=== PATIENT | female | born 1995 | race Caucasian/White ===

== ENCOUNTER 2022-07-01 07:28 | Inpatient (IN) ==
[2022-07-01] MEDS ORDERED: OXYTOCIN 30 UNITS/500 ML BAG IV PRN ×2 (07:54→07:56)
[2022-07-01] MEDS ORDERED: LIDOCAINE 1% LOCAL 20 ML VIAL INFIL PRN (07:54)
[2022-07-01 08:26] LABS: Hematocrit (blood only) 33.5 % (37.0-47.0); Hemoglobin 11.6 g/dl (12.0-16.0); Mean Corpuscular Hemoglobin 31.1 pg (25.0-34.0); Mean Corpuscular Hgb Conc 34.6 g/dL (32.0-36.0); Mean Corpuscular Volume 89.8 fL (80.0-100.0); Mean Platelet Volume 9.1 fL (9.4-12.4); Platelet Count 272 K/uL (130-400); RDW Coefficient of Variation 12.7 % (11.5-14.5); RDW Standard Deviation 41.3 fL (36.4-46.3); Red Blood Count 3.73 M/uL (4.20-5.40)
--- NOTE | 2022-07-01 08:28 | Obstetrical Progress Note ---
Date of Service July 01, 2022 Assessment & Plan (1) Encounter for induction of labor: Plan - Patient admitted to labor and delivery for initiation of medical induction of labor - Patient received Salmeron bulb placement yesterday, did not dislodge - MARC pending per Dr. Diaz - Oxytocin augmentation of labor will be started per protocol - Once contractions are progressing, will consider ROM - Will anticipate epidural as contractions arise - Labs pending Admission and Anticipated Discharge Date Admission Date: July 01, 2022 Supervising Physician Co-Signing Physician Notes Resident Physician Supervision Note: I interviewed and examined the patient. Discussed with Dr. Miles and agree with findings and plan as documented in the note. Any exceptions or clarifications are listed here: 26 yo G1 at 40 6/7 wga presents for IOL. +FM and small VB w/ salmeron, denies regular ctx, LOF. PNI: None. VSS, Fetus cat 1. SVE 3-4/50/-2, post, med. EFW 7-8lbs. Will start pit, gbs neg, epidural PRN Documented By: Jaquelin Diaz MD Subjective Subjective: Tammie is a 26 year old female currently at 40 6/7 with ADRYAN 06/25/22 determined by LMP who presents to L&D for induction. Complications: None Reason for Induction/: Post-date Movement: Active Fluid Loss/ROM: None Bloody show/discharge: Small bloody discharge following Salmeron Bulb Salmeron Bulb: Did not dislodge Contractions: Irregular since Salmeron Bulb External FHT and uterine monitor: Category 1, tracing reactive, good FHT variability Last OB appointment: 06/30/22, regular care [employer] Hx: Hx of abnml PAP: Pos (abnormal pap, and positive hpv may 2021, colpo), Infection History: Hx Chlamydia: No, Hx Genital Herpes: No, Hx Gonorrhea: No, Hx Hepatitis: No, Hx HIV/AIDS: No, Hx Human Papilloma Virus (HPV): Yes (HPV + 2021), Hx Syphilis: No, Hx Tuberculosis: No, Rash or viral illness since LMP: No and Prior GBS infected child: No Labs: Blood Type: O+ Antibody Screen: Negative Hg/Hct (today): Pending WBC/Plt (today): Pending Rubella: Immune RPR: Non-reactive Gonorrhea: Negative Chlamydia: Negative HIV: Negative HbSAg: Negative GBS: Negative Cff-DNA: Low risk, male Cf-SMA: Negative ROS: - Denies fever, chills, sweats - Denies dyspnea or pleuritic pain - Denies chest pain, palpitations, or pressure - Denies breast pain - Denies dysuria - Denies headache or visual changes Physical Exam Physical Exam: General: Alert, oriented. No acute distress. Cardiac: Regular rate and rhythm, no murmurs/rubs/gallops. Respiratory: Clear to auscultation bilaterally a/p, no wheezes/rales/rhonchi. No increased work of breathing. Symmetrical chest rise. No respiratory distress. Abdomen: Gravid; reactive FHTs; Position: V by Yomi Maneuver Pelvic: MARC pending per Dr. Diaz Lower Extremities: No lower extremity edema or swelling. No deep calf pain. Fabiano's negative bilaterally. Results & Data Vital Signs (Past 12 Hours) Vital Signs Temp Pulse Resp BP 07/01/22 07:41 36.7 C 103 H 18 119/78 07/01/22 07:46 103 H 119/78 Resident Activity Tracking Resident Involvement: Resident Care Provided Care Provided: OB Delivery
[2022-07-01] MEDS: LACTATED RINGER'S 1,000 ML IV PRN ×2 (09:22→14:25)
[2022-07-01] MEDS ORDERED: ePHEDrine sulfate 50 MG/ML AMP ONE (13:51)
[2022-07-01] MEDS ORDERED: LIDOCAINE 2%/EPINEPHRINE 1:200,000 20 ML PF ONE (13:52)
[2022-07-01] MEDS ORDERED: fentaNYL 2MCG/ML ROPIVACAINE 1.25MG/ML 100 ML BAG EPI ONE (13:52)
[2022-07-01] MEDS ORDERED: BUPIVACAINE 0.25% PF 30 ML VIAL ONE (13:52)
[2022-07-01] MEDS ORDERED: fentaNYL citrate PF 100 MCG/2 ML VIAL ONE (13:52)
[2022-07-01] MEDS ORDERED: SODIUM CHLORIDE 0.9% PF INJ 10 ML VIAL ONE (13:52)
--- NOTE | 2022-07-01 13:59 | Labor Progress Brief Note ---
Date of Service July 01, 2022 Subjective cramping w/ ctx Assessment & Plan (1) Encounter for induction of labor: Plan: 26 yo G1 at 40 6/7 wga presents for IOL VSS Fetus cat 1 Labor - pit at 10, s/p arom. Will see if helps GBS neg epidural prn Admission and Anticipated Discharge Date Admission Date: July 01, 2022 Physical Exam Genitourinary: Manual OB Exam: + cervical dilation 4 cm, + cervical effacement 50%, + station -2 and + amniotic fluid (arom) clear OB Exam Monitor Tracing: + external FHT monitor used, + external uterine monitor used (q3) and + category I (140/mod/+accel/-decel) Results & Data Vital Signs (Past 12 Hours) Vital Signs Temp Pulse Resp BP 07/01/22 07:41 98.1 F 103 H 18 119/78 07/01/22 12:11 75 129/88 07/01/22 11:01 80 124/83 07/01/22 11:02 98.2 F 07/01/22 07:46 103 H 119/78 Coding Level of Care Code None Diagnoses Encounter for induction of labor Z34.90
[2022-07-01] MEDS ORDERED: diphenhydrAMINE 50 MG/ML VIAL IV PRN (14:31)
[2022-07-01] MEDS ORDERED: ONDANSETRON INJ 2 MG/ML 2 ML VIAL IV PRN (14:31)
[2022-07-01] MEDS ORDERED: NALBUPHINE HCL INJ 10 MG/ML AMP IV PRN (14:31)
[2022-07-01] MEDS ORDERED: NALOXONE HCL 0.4 MG/1 ML VIAL/CARP IV PRN (14:31)
[2022-07-01] MEDS ORDERED: ePHEDrine sulfate 50 MG/ML AMP IV PRN (14:31)
[2022-07-01] MEDS ORDERED: fentaNYL 2MCG/ML ROPIVACAINE 1.25MG/ML 100 ML BAG EPI PRN (14:31)
[2022-07-01] MEDS ORDERED: NALOXONE HCL 1 MG in SODIUM CHLORIDE 0.9% 1000ML 1,000 ML IV PRN (14:31)
--- NOTE | 2022-07-01 14:31 | Anesthesiology Consultation ---
Date of Service July 01, 2022 Assessment & Plan Chart Review Chart Review: Patient NOT seen in Pre Admission Testing and Acceptable Risk for Labor Epidural Consults Requested none ASA ASA2 Proposed Anesthesia Anesthesia Type: Labor Epidural Risk / Benefits Reviewed With: PT / POA / Parent / Guardian, Accepts Plan and Informed Consent Obtained History Height/Weight Height: 5 ft 7 in Weight: 82.554 kg Allergies Allergy/AdvReac Type Severity Reaction Status Date / Time No Known Allergies Allergy Verified 06/30/22 19:06 Medications Home Medications Medication Instructions Recorded Confirmed Last Taken prenat.vits,percy,[id number]-[id number] 1 tab PO DAILY 11/17/21 07/01/22 07/01/22 06:30 breast pump #1 ea 06/10/22 06/30/22 Unknown Active Medications Generic Name Dose Route Start Last Admin Trade Name Freq PRN Reason Stop Dose Admin Lactated Ringer's 1,000 mls @ 125 mls/hr 07/01/22 07:54 07/01/22 14:25 Lr IV 07/03/22 07:53 999 mls/hr .Q8H PRN Administration L&D Protocol Protocol Oxytocin 30 units in 500 mls @ 10 mls/hr 07/01/22 07:56 07/01/22 12:10 Pitocin IV 07/31/22 07:55 0.6 units/hr .Q24H PRN 10 mls/hr Labor Induction/Augmentation Titration Protocol 0.6 UNITS/HR Past Medical History Medical History (Updated 07/01/22 @ 08:47 by Pipe Miles DO) No known health problems Exercise / Class Metabolic Activity II 4-5 Yardwork/Stairs/Walk up hill Past Family History Family History (Updated 11/17/21 @ 17:02 by Sol Nair) Aunt Spina bifida Mother Diabetes Hypertension Dyslipidemia Heart murmur Grandfather (Maternal) Diabetes Hypertension Dyslipidemia Other Breast cancer Past Surgical History Surgical History (Updated 06/30/22 @ 19:07 by Loreto Palma RN) [place] teeth removed Past Anesthesia History No Hx of Anesthesia Complications and No Family Hx of Anesthesia Complications History of PONV No Hx of PONV and No Hx of Motion Sickness Social History Smoking Status: Never smoker Hx Alcohol Use: No Hx Substance Use: No substance use type: does not use Physical Exam Vital Signs Last Vital Signs Temp 36.8 C 07/01/22 11:02 Pulse 99 H 07/01/22 14:28 Resp 18 07/01/22 07:41 BP 125/70 07/01/22 14:27 Pulse Ox 98 07/01/22 14:28 ENMT Mouth: no dentition abnormality Thyromental Distance: > or= 3.5 Finger Breadths Mallampati Class: II Neck normal visual inspection Respiratory normal respiratory effort Auscultation: lungs clear to auscultation bilaterally Cardiovascular Rate/Rhythm: regular rate and regular rhythm Psychiatric Orientation: alert Testing Laboratory Results 07/01/22 08:03
--- NOTE | 2022-07-01 17:34 | Delivery Summary ---
Vaginal Delivery Summary Date of Service July 01, 2022 Vaginal Delivery Summary DIAGNOSES: 1. Mccullough intrauterine at 40w6d gestation. 2. Induction of labor d/t postdates . 3. Group B Streptococcus neg. PROCEDURE: Spontaneous vaginal delivery without laceration. SURGEON: Opal Cisneros MD. APPLICATIONS INSTRUCTOR: None. ESTIMATED BLOOD LOSS: 250 mL. COMPLICATIONS: None. PLACENTA: Spontaneous and intact with a 3-vessel cord. DISPOSITION: Stable to labor and delivery. DESCRIPTION: The patient pushed well and brought the head to in DOA position. The 's head was allowed to deliver with contraction force and no further active pushing, with the perineum protected during this time. There was one loop of nuchal cord. The right shoulder was anterior. There was a mild shoulder dystocia resolved with Kristopher and suprapubic pressure, performed from the posterior aspect of the R shoulder by Regina. The then delivered without any further difficulty, and was placed on the maternal abdomen. It was vigorous and moving all extremities, and making respiratory efforts. The cord was doubly clamped by the MD and then cut by the FOB. The placenta delivered spontaneously and was noted to be intact and with a 3VC. The cervix, vagina and perineum were examined and were found to be without defect requiring repair. The fundus was firm and lochia minimal immediately after delivery. [facility] Vaginal Delivery Charge Vaginal Delivery Codes: 43954 global code for the antepartum, delivery, and post-
[2022-07-01] MEDS ORDERED: BENZOCAINE 20% AER SPR 82.5 GM CAN EXT PRN (19:59)
[2022-07-01] MEDS ORDERED: oxyCODONE/ACETAMINOPHEN 5mg/325mg TAB PO PRN (19:59)
[2022-07-01] MEDS ORDERED: ACETAMINOPHEN 325 MG TAB PO PRN (19:59)
[2022-07-01] MEDS ORDERED: HYDROCORTISONE ACETATE 25 MG SUPP PR PRN (19:59)
[2022-07-01] MEDS ORDERED: DIPHTHERIA/TETANUS/PERTUSSIS 0.5mL SYR/VIAL (Age 7+yrs) IM ONE (19:59)
[2022-07-01] MEDS: DOCUSATE SODIUM 100 MG CAP PO SCH (20:34)
[2022-07-02] MEDS: IBUPROFEN 600 MG TAB PO PRN ×4 (05:08→22:56)
[2022-07-02 06:18] LABS: Hemoglobin 10.7 g/dl (12.0-16.0); Mean Corpuscular Hemoglobin 30.9 pg (25.0-34.0); Mean Corpuscular Hgb Conc 34.5 g/dL (32.0-36.0); Mean Corpuscular Volume 89.6 fL (80.0-100.0); Mean Platelet Volume 9.3 fL (9.4-12.4); Platelet Count 254 K/uL (130-400); RDW Coefficient of Variation 12.8 % (11.5-14.5); RDW Standard Deviation 41.5 fL (36.4-46.3); Red Blood Count 3.46 M/uL (4.20-5.40); White Blood Count 21.19 K/ul (4.8-10.8)
--- NOTE | 2022-07-02 06:29 | Obstetrical Progress Note ---
Date of Service July 02, 2022 Assessment & Plan (1) Normal vaginal delivery: Routine PP care today. Patient sleeping and not disturbed for exam at request of FOB, who gave history on her behalf. Subjective Ambulation: ambulating normally Voiding: no voiding problems Passing Gas:: Yes Diet Tolerance:: regular diet Lochia:: Small Feeding Type:: breast feeding Physical Exam Constitutional WD/WN, vitals as above Neck normal visual inspection Respiratory normal respiratory effort; no respiratory distress and no labored breathing Cardiovascular Rate/Rhythm: regular rate and regular rhythm Extremities: no edema Chest (Breasts) Chest: normal inspection of chest Psychiatric A+Ox3, euthymic affect Results & Data Vital Signs (Past 12 Hours) Vital Signs Temp Pulse Pulse Resp BP BP Pulse Ox 07/02/22 03:54 98.6 F 95 H 20 117/84 97 07/02/22 00:00 98.1 F 94 H 18 112/77 97 07/01/22 20:28 98.4 F 116 H 18 135/85 98 07/01/22 19:30 18 07/01/22 19:00 98.1 F 18 07/01/22 19:46 109 H 137/82 07/01/22 19:36 112 H 134/82 07/01/22 19:21 100 H 135/79 07/01/22 19:06 107 H 128/77 07/01/22 18:52 112 H 123/87 07/01/22 18:36 105 H 116/66 O2 Del Method 07/02/22 03:54 Room Air 07/02/22 00:00 Room Air 07/01/22 20:28 Room Air 07/01/22 19:30 07/01/22 19:00 07/01/22 19:46 07/01/22 19:36 07/01/22 19:21 07/01/22 19:06 07/01/22 18:52 07/01/22 18:36
[2022-07-02] MEDS: PRENATAL VITAMIN 1 TAB PO SCH (09:34)
[2022-07-02] MEDS: DOCUSATE SODIUM 100 MG CAP PO SCH ×2 (09:34→20:19)
[2022-07-03 06:51] LABS: Hematocrit (blood only) 31.5 % (37.0-47.0); Hemoglobin 10.5 g/dl (12.0-16.0)
--- NOTE | 2022-07-03 07:01 | Obstetrical Progress Note ---
Date of Service July 03, 2022 Assessment & Plan (1) Normal vaginal delivery: 26 yo PP2 from , doing well -Meeting all pp milestones -O+/rubella immune/ -f/u 6 weeks for appt, stable for d/c home Subjective Ambulation: ambulating normally Voiding: no voiding problems Passing Gas:: Yes Diet Tolerance:: regular diet Lochia:: Small Feeding Type:: breast feeding Pain well managed with medication Review of Systems Denies fevers, chills, n/v, SARMIENTO, CP, SOB Physical Exam Constitutional WD/WN, vitals as above no acute distress Respiratory normal respiratory effort, lungs clear to auscultation Cardiovascular RRR, no murmur, no edema Gastrointestinal (Abdomen) Percussion/Palpation: abdomen soft; abdomen nontender fundus firm at umbilicus and NT Musculoskeletal BLE symmetric, nonerythematous, nontender Results & Data Vital Signs (Past 12 Hours) Vital Signs Temp Pulse Resp BP Pulse Ox O2 Del Method 07/02/22 22:51 98.1 F 75 18 113/75 97 Room Air 07/02/22 20:20 98.1 F 82 18 122/82
[2022-07-03] MEDS: IBUPROFEN 600 MG TAB PO PRN (08:36)
[2022-07-03] MEDS: DOCUSATE SODIUM 100 MG CAP PO SCH (08:36)
[2022-07-03] MEDS: PRENATAL VITAMIN 1 TAB PO SCH (08:36)
== END 2022-07-03 14:33 | disposition home or self-care (01) | DRG 807 ==
LOC: 4S1 07:28 → 4E2 20:19

== ENCOUNTER 2024-04-15 04:39 | Inpatient (IN) ==
[2024-04-15] MEDS ORDERED: LIDOCAINE 1% LOCAL 20 ML VIAL INFIL PRN (05:30)
[2024-04-15] MEDS ORDERED: OXYTOCIN 30 UNITS/NSS 30 UNITS/500 ML BAG IV PRN ×2 (05:30→13:05)
[2024-04-15] MEDS ORDERED: ACETAMINOPHEN 325 MG TAB PO PRN (05:30)
[2024-04-15] MEDS ORDERED: CALCIUM CARBONATE 500 MG CHEWABLE TAB PO PRN (05:30)
--- NOTE | 2024-04-15 05:38 | History & Physical Report ---
Date of Service April 15, 2024 Assessment & Plan (1) Encounter for supervision of normal intrauterine in multigravida, antepartum: Plan: IUP at 39+ weeks in labor GBS-negative epidural if requested anticipate vaginal History of Present Illness Primary Care Provider: VON Lee Patient is a 28 yo female EDC 04/19/24 who presents at 39 3/7 weeks in labor. contractions have been about 4-5 minutes apart since just after midnight. (-) SPROM , she has had some pink discharge along with the contractions. complicated by presence of echogenic bowel on our anatomy scan however follow up scan at [facility] [place] found normal anatomy. GBS -negative/ O-positive Allergies Allergy/AdvReac Type Severity Reaction Status Date / Time No Known Allergies Allergy Verified 04/12/24 16:17 Home Medications Medication Instructions Recorded Confirmed Type prenat.vits,percy,ibx-qlwi-mzukj 1 tab PO DAILY 11/17/21 04/12/24 History Patient History Medical History HPV (human papilloma virus) infection Abnormal Pap smear of cervix Anxiety Surgical History Status post colposcopy [place] teeth removed Family History Aunt Spina bifida Mother Diabetes Hypertension Dyslipidemia Heart murmur Grandfather (Maternal) Diabetes Hypertension Dyslipidemia Sister Stillbirth Other Breast cancer Social History Smoking Status: Never smoker Do You Dip or Chew Tobacco: No; Hx Alcohol Use: No Hx Substance Use: No Preferred Language: Maori Communication Ability: Effective Curer Foam Rubber Required: No Beliefs That Will Affect Care: None marital status: marital status details: Rocco (34) [phone] Current Living Situation: Spouse and Family Current Living Situation Comment: lives with spouse and son, 3 dogs current occupational status: 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 Other Information That Helps Us Care for You: No Feels Safe at Home: Yes Safety Concerns: Feels Safe At This Time Assistive Devices: None Review of Systems All systems reviewed & are unremarkable except as noted in HPI & below Physical Exam Constitutional: WD/WN, vitals as above Psychiatric: A+Ox3, euthymic affect Genitourinary: OB Exam Abdomen: + fundal height (term), + vertex and + regular contractions (Q3-5 minutes) Manual OB Exam: + cervical dilation (3-4cm), + cervical effacement (75%) and + station -2 OB Exam Monitor Tracing: + external FHT monitor used, + external uterine monitor used, + category I and + normal FHT variability Results & Data Vital Signs (Past 12 Hours) Vital Signs Temp Pulse Resp BP 04/15/24 05:03 100 H 122/81 04/15/24 05:02 97.7 F 90 18 Code Status & VTE Plan VTE Prophylaxis Plan VTE Prophylaxis will be ordered: No Coding Level of Care Code 78098 INT INP/OBS CARE 1/40MIN Diagnoses Encounter for supervision of normal intrauterine in multigravida, antepartum Z34.80
[2024-04-15 06:20] LABS: Hematocrit (blood only) 33.4 % (37.0-47.0); Hemoglobin 11.4 g/dl (12.0-16.0); Mean Corpuscular Hemoglobin 29.8 pg (25.0-34.0); Mean Corpuscular Hgb Conc 34.1 g/dL (32.0-36.0); Mean Corpuscular Volume 87.4 fL (80.0-100.0); Mean Platelet Volume 9.3 fL (9.4-12.4); Platelet Count 262 K/uL (130-400); RDW Coefficient of Variation 12.5 % (11.5-14.5); RDW Standard Deviation 39.8 fL (36.4-46.3); Red Blood Count 3.82 M/uL (4.20-5.40); White Blood Count 13.37 K/ul (4.8-10.8)
[2024-04-15] MEDS ORDERED: diphenhydrAMINE 50 MG/ML VIAL IV PRN (07:15)
[2024-04-15] MEDS ORDERED: LIDOCAINE 2% MPF LOCAL 5 ML VIAL EPI PRN (07:15)
[2024-04-15] MEDS ORDERED: fentANYL 2 MCG/ML BUPIVacaine 0.125%-NSS 100ML BAG EPI PRN (07:15)
[2024-04-15] MEDS ORDERED: NALOXONE HCL 1 MG in SODIUM CHLORIDE 0.9% 1,000 ML IV PRN (07:15)
[2024-04-15] MEDS ORDERED: ePHEDrine sulfate 50 MG/ML AMP IV PRN (07:15)
[2024-04-15] MEDS ORDERED: NALOXONE HCL 0.4 MG/1 ML VIAL/CARP IV PRN (07:15)
[2024-04-15] MEDS ORDERED: BUPIVACAINE 0.25% PF 30 ML VIAL EPI PRN (07:15)
[2024-04-15] MEDS ORDERED: NALBUPHINE HCL INJ 10 MG/ML AMP IV PRN (07:15)
[2024-04-15] MEDS ORDERED: SODIUM CHLORIDE 0.9% PF INJ 10 ML VIAL EPI PRN (07:15)
[2024-04-15] MEDS ORDERED: ROPIVACAINE 0.5% PF 5 MG/ML 20 ML VIAL EPI PRN (07:15)
[2024-04-15] MEDS ORDERED: fentaNYL citrate PF 100 MCG/2 ML VIAL EPI PRN (07:15)
[2024-04-15] MEDS: SODIUM CHLORIDE 0.9% 1,000 ML IV SCH (07:16)
--- NOTE | 2024-04-15 07:19 | Anesthesiology Consultation ---
Date of Service April 15, 2024 Assessment & Plan Chart Review Chart Review: Patient NOT seen in Pre Admission Testing and Acceptable Risk for Labor Epidural Consults Requested none ASA ASA2 Proposed Anesthesia Anesthesia Type: Labor Epidural Risk / Benefits Reviewed With: PT / POA / Parent / Guardian, Accepts Plan and Informed Consent Obtained History Height/Weight Height: 5 ft 7 in Weight: 78.471 kg Allergies Allergy/AdvReac Type Severity Reaction Status Date / Time No Known Allergies Allergy Verified 04/12/24 16:17 Medications Home Medications Medication Instructions Recorded Confirmed Last Taken prenat.vits,percy,sai-xtse-ygddo 1 tab PO DAILY 11/17/21 04/12/24 04/14/24 18:00 NPO Date Last Intake of Fluids: 04/15/24 Time Last Intake of Fluids: 07:00 Date Last Intake of Solids: 04/14/24 Time Last Intake of Solids: 20:00 Past Medical History Medical History HPV (human papilloma virus) infection Abnormal Pap smear of cervix Anxiety Exercise / Class Metabolic Activity 1 > 8 Run/Swim/Ski/Tennis Past Family History Family History Aunt Spina bifida Mother Diabetes Hypertension Dyslipidemia Heart murmur Grandfather (Maternal) Diabetes Hypertension Dyslipidemia Sister Stillbirth Contracted CMV in Other Breast cancer Past Surgical History Surgical History Status post colposcopy [place] teeth removed Past Anesthesia History No Hx of Anesthesia Complications and No Family Hx of Anesthesia Complications History of PONV No Hx of PONV and No Hx of Motion Sickness Social History Smoking Status: Never smoker Do You Dip or Chew Tobacco: No Hx Alcohol Use: No Hx Substance Use: No substance use type: does not use Review of Systems ROS Unobtainable: All systems reviewed & are unremarkable except as noted in HPI & below Physical Exam Vital Signs Last Vital Signs Temp 36.5 C 04/15/24 05:02 Pulse 92 H 04/15/24 07:11 Resp 18 04/15/24 05:02 BP 117/82 04/15/24 07:10 Pulse Ox 99 04/15/24 07:11 ENMT Mouth: no TMJ abnormality Thyromental Distance: > or= 3.5 Finger Breadths Mallampati Class: II Neck normal visual inspection and trachea midline; neck extension not limited Respiratory normal respiratory effort Auscultation: lungs clear to auscultation bilaterally Cardiovascular Rate/Rhythm: regular rate and regular rhythm Heart Sounds: no murmur Musculoskeletal Spine: normal cervical ROM Extremities: full ROM of extremities Neurologic moves all extremities Psychiatric Orientation: alert and oriented x 3 Testing Laboratory Results 04/15/24 05:45
[2024-04-15] MEDS: fentANYL 2 MCG/ML BUPIVacaine 0.125%-NSS 100ML BAG ONE (07:39)
[2024-04-15] MEDS: LIDOCAINE 2%/EPINEPHRINE 1:200,000 20 ML PF ONE (07:41)
[2024-04-15] MEDS: fentaNYL citrate PF 100 MCG/2 ML VIAL ONE (07:41)
[2024-04-15] MEDS: SODIUM CHLORIDE 0.9% PF INJ 10 ML VIAL ONE (07:41)
[2024-04-15] MEDS: BUPIVACAINE 0.25% PF 30 ML VIAL ONE (07:41)
[2024-04-15] MEDS: BUPIVACAINE 0.25% PF 30 ML VIAL EPI STA (07:42)
[2024-04-15] MEDS: LIDOCAINE 2%/EPINEPHRINE 1:200,000 20 ML PF EPI STA (07:43)
[2024-04-15] MEDS: SODIUM CHLORIDE 0.9% PF INJ 10 ML VIAL EPI STA (07:43)
[2024-04-15] MEDS: fentaNYL citrate PF 100 MCG/2 ML VIAL EPI STA (07:43)
--- NOTE | 2024-04-15 09:24 | Labor Progress Brief Note ---
Date of Service April 15, 2024 Subjective comfortable with epidural. Assessment & Plan (1) Normal labor: Plan since epidural, ctx have spaced, will start pit and see how arom helps labor pattern. fhts categ 1. Admission and Anticipated Discharge Date Admission Date: April 15, 2024 Physical Exam Constitutional: WD/WN, vitals as above Genitourinary: OB Exam Abdomen: + estimated weight (7-8#) Manual OB Exam: + cervical dilation 5 cm, + cervical effacement (75%), + station -2 and + amniotic fluid (arom) clear OB Exam Monitor Tracing: + external FHT monitor u sed, + external uterine monitor used (irreg), + category I and + normal FHT variability Results & Data Vital Signs (Past 12 Hours) Vital Signs Temp Pulse Resp BP Pulse Ox 04/15/24 09:21 91 H 99 04/15/24 09:16 85 109/72 99 04/15/24 09:11 94 H 102/64 99 04/15/24 09:08 87 105/64 04/15/24 09:06 85 99 04/15/24 09:02 87 104/65 04/15/24 09:01 81 99 04/15/24 08:57 90 99/59 L 04/15/24 08:56 91 H 100 04/15/24 08:52 87 101/64 04/15/24 08:51 91 H 98 04/15/24 08:46 100 04/15/24 08:46 93 H 04/15/24 08:46 88 107/68 04/15/24 08:42 97 H 104/68 04/15/24 08:41 95 H 99 04/15/24 08:36 100 H 104/72 99 04/15/24 08:31 95 H 104/73 98 04/15/24 08:26 100 04/15/24 08:26 96 H 04/15/24 08:26 97 H 106/75 04/15/24 08:22 95 H 107/75 04/15/24 08:21 95 H 98 04/15/24 08:16 99 04/15/24 08:16 91 H 04/15/24 08:16 93 H 102/64 04/15/24 08:11 98 H 103/68 97 04/15/24 08:06 93 H 98 04/15/24 08:04 93 H 102/69 04/15/24 08:02 91 H 105/68 04/15/24 08:01 102 H 100 04/15/24 08:00 98 H 104/70 04/15/24 07:58 93 H 106/67 04/15/24 07:56 98 04/15/24 07:56 102 H 04/15/24 07:56 102 H 105/70 04/15/24 07:54 100 H 105/66 04/15/24 07:52 100 H 104/70 04/15/24 07:51 96 H 98 04/15/24 07:50 96 H 104/68 04/15/24 07:48 100 H 109/71 04/15/24 07:46 98 H 111/71 97 04/15/24 07:44 99 H 107/68 04/15/24 07:42 95 H 105/65 04/15/24 07:41 99 H 98 04/15/24 07:40 96 H 108/68 04/15/24 07:38 93 H 109/69 04/15/24 07:36 94 H 108/68 99 04/15/24 07:34 90 109/66 04/15/24 07:31 104 H 100 04/15/24 07:26 101 H 100 04/15/24 07:24 95 H 92 04/15/24 07:21 79 100 04/15/24 07:16 87 100 04/15/24 07:11 92 H 99 04/15/24 07:10 87 117/82 04/15/24 05:03 100 H 122/81 04/15/24 05:02 97.7 F 04/15/24 05:02 97.7 F 90 18 Coding Level of Care Code None Diagnoses Normal labor O80; Z37.9
[2024-04-15] MEDS: OXYTOCIN 30 UNITS/NSS 30 UNITS/500 ML BAG IV PRN (09:54)
--- NOTE | 2024-04-15 12:44 | Delivery Summary ---
Vaginal Delivery Summary Date of Service April 15, 2024 Vaginal Delivery Summary and 2nd Degree LAC The patient dilated to complete and pushed to deliver a viable male infant Apgars 9 and 9 via over 2nd degree perineal laceration. Mouth and nose bulb suctioned at perineum. Shoulders and body delivered with ease. Infant was vigorous and crying at . Cord clamped at 30 seconds of life and infant to maternal abdomen where the cord was then doubly clamped and cut. Placenta delivered spontaneously and intact, three-vessel cord. Hemostasis achieved with dilute pitocin and uterine massage. Laceration repaired in routine fashion with 3-0 vicryl. Cervix and sulci intact. QBL 179 cc. Mother and baby stable in recovery. [facility] Vaginal Delivery Charge Delivery Type Details: and 2nd Degree LAC
[2024-04-15] MEDS: ePHEDrine sulfate 50 MG/ML AMP ONE (12:49)
[2024-04-15] MEDS ORDERED: oxyCODONE/ACETAMINOPHEN 5mg/325mg TAB PO PRN (13:05)
[2024-04-15] MEDS ORDERED: HYDROCORTISONE ACETATE 25 MG SUPP PR PRN (13:05)
[2024-04-15] MEDS ORDERED: BENZOCAINE 20% SPRY 85 APPLN/85 GM CAN EXT PRN (13:05)
--- NOTE | 2024-04-15 14:19 | Anesthesia Procedure Note ---
Date of Service April 15, 2024 Anesthesia Post Epidural Note Vital Signs Vital Signs: Temp Pulse Resp BP Pulse Ox 36.9 C 89 20 114/61 100 04/15/24 11:00 04/15/24 14:16 04/15/24 13:46 04/15/24 14:16 04/15/24 12:46 Notes Mental Status: alert / awake / arousable and participated in evaluation Nausea / Vomiting: adequately controlled Pain: adequately controlled Airway Patency, RR, SpO2: stable & adequate BP & HR: stable & adequate Hydration State: stable & adequate Neuraxial Anesthesia: was administered and sensory block is resolving Anesthetic Complications: no major complications apparent Epidural: Removed without complications and With tip intact
[2024-04-15] MEDS: DIPHTHER/TETAN/PERTUS Vaccine (Tdap, Adol/Adult) 0.5mL IM ONE (16:54)
[2024-04-15] MEDS: ACETAMINOPHEN 325 MG TAB PO PRN (20:35)
[2024-04-15] MEDS: DOCUSATE SODIUM 100 MG CAP PO SCH (20:35)
[2024-04-15] MEDS: IBUPROFEN 600 MG TAB PO PRN (23:21)
--- NOTE | 2024-04-16 07:19 | Obstetrical Progress Note ---
Date of Service April 16, 2024 Assessment & Plan (1) Encounter for care and examination after delivery: 28 yo PP1 from , doing well -Meeting all pp milestones -O+/rubella immune/ -f/u 6 weeks for appt. Considering dc later today but would like to see how it goes, ok to dc if desires Subjective Ambulation: ambulating normally Voiding: no voiding problems Passing Gas:: Yes Diet Tolerance:: regular diet Lochia:: Small Feeding Type:: breast feeding Pain well managed with medication Review of Systems Denies fevers, chills, n/v, SARMIENTO, CP, SOB Physical Exam Constitutional WD/WN, vitals as above no acute distress Respiratory normal respiratory effort, lungs clear to auscultation Cardiovascular RRR, no murmur, no edema Gastrointestinal (Abdomen) Percussion/Palpation: abdomen soft; abdomen nontender fundus firm at umbilicus and NT Musculoskeletal BLE symmetric, nonerythematous, nontender Results & Data Vital Signs (Past 12 Hours) Vital Signs Temp Pulse Resp BP Pulse Ox O2 Del Method 04/16/24 02:50 97.9 F 68 18 105/70 98 Room Air 04/15/24 23:10 97.9 F 86 18 104/70 97 Room Air 04/15/24 20:00 98.1 F 95 H 18 125/80 99 Room Air
[2024-04-16] MEDS: PRENATAL VITAMIN 1 TAB PO SCH (08:08)
[2024-04-16 10:51] VITALS: RESP 20; TEMP 98.1; O2SAT 97
[2024-04-16 12:52] VITALS: BP 104/72; PULSE 77
[2024-04-16] MEDS ORDERED: bisacodyL 5 MG TABEC PO SCH (20:00)
== END 2024-04-16 15:35 | disposition home or self-care (01) | DRG 807 ==
LOC: OPB 04:39 → 4S1 04:49 → 4E2 17:04